=== PATIENT | female | born 1955 | race Caucasian/White ===

== ENCOUNTER 2020-05-21 18:57 | Observation (INO) | payer BC, OTHER ==
[~2020-05-21] VITALS: Ht 152.4 cm; Wt 85.0 kg
[2020-05-21] MEDS ORDERED: D31000TA2 PO ×2 (19:45→20:58)
[2020-05-21] MEDS ORDERED: FERR1TAB8 PO (19:45)
[2020-05-21] MEDS ORDERED: VITA100T86 PO (19:45)
[2020-05-21] MEDS ORDERED: ZETI10TA16 PO (19:45)
[2020-05-21] MEDS ORDERED: LEVO88TA3 PO (19:45)
[2020-05-21] MEDS ORDERED: ASPI-255 PO (19:45)
[2020-05-21 20:30] VITALS: BP 133/86
[2020-05-21] MEDS ORDERED: ROSU10TA6 PO (20:58)
[2020-05-21] MEDS ORDERED: FERR325T16 PO (20:58)
[2020-05-21] MEDS ORDERED: METO1TAB7 PO (20:58)
[2020-05-21] MEDS ORDERED: OMEP-221 PO (20:58)
[2020-05-21] MEDS ORDERED: DULO1CAP6 PO (20:58)
[2020-05-21] MEDS ORDERED: MYRB25TA PO (20:58)
[2020-05-21] MEDS ORDERED: FERROUS GLUCONATE 324 MG TAB PO SCH (21:00)
[2020-05-21] MEDS ORDERED: DULoxetine 30 MG CAP (CYMBALTA) PO SCH (21:00)
--- NOTE | 2020-05-21 22:08 | HPEPDOC ---
[facility] Medical History & Physical Date of Admission May 21, 2020 Date of Service: May 21, 2020 History and Physical CHIEF COMPLAINT: Confused at 1:30 PM HISTORY OF PRESENT ILLNESS: 64-year-old nonsmoker with hypertension, hyperlipidemia, presents from [facility] emergency room as a transfer with complaints of acute onset altered mental status at 1:30 PM while in her camp with her and 2 children Celso and Bryanna. . Her children had left earlier in the morning at 1:30 PM she kept saying "there is something wrong or something wrong. Wears Silvio and Bryanna." . She could not remember where she was and could not remember that her children had left earlier in the morning. denied any facial asymmetry, drooping, slurred speech, bilateral upper or lower lower extremity weakness, or gait abnormalities. Patient was disoriented and did not know where she was with time it was. She walked around the camp without difficulty and unassisted. She was able to understand questions and speech was fluent and not dysarthric. By the time EMS arrived 30 minutes later at 2:00 PM, she was back to baseline mentation. She's had no prior episodes of disorientation and confusion in the past. , Her blood pressure at [facility] emergency room was 160/101. Neurologic exam was normal without focal deficits. Bilateral upper and lower extremity weakness or paresthesias. She was able to count backwards from 100 awake, alert, oriented 3. On arrival, patient was given a 325 mg of aspirin by mouth and intravenous hydralazine 10 mg with blood pressure decreasing to 142/89. EKG showed sinus rhythm Covid was negative. Glucose was 123. Urinalysis was normal. PAST MEDICAL HISTORY: Hypertension, dyslipidemia, history of secondhand cigarette exposure as a child. , Depression, gastroesophageal reflux, iron deficiency, urinary incontinence PAST SURGICAL HISTORY: Tubal ligation, dilation and curettage EGD, colonoscoscopy HOME MEDICATIONS see below ALLERGIES: See below SOCIAL HISTORY: Retired school nurse. Denies alcohol, tobacco, recreational drug use. Secondhand cigarette smoke when she was a child FAMILY HISTORY: Father alive with dementia, age 94. History CAD, CABG 3 vessels, bladder cancer and CVA Mother in her 70s with CVA, CABG 4 vessels ALLERGIES: Please see below. REVIEW OF SYSTEMS: Positive findings per HPI. 10 point review of system otherwise negative PHYSICAL EXAMINATION: VITAL SIGNS: See below GENERAL APPEARANCE: Awake, alert, oriented times ransom questions appropriately. No conversational dyspnea No pallor, no icterus HEENT: NCAT. Pupils are equally round ,reactive to light and accommodation. Extra muscles are intact. Tongue is midline. No facial asymmetry CARDIOVASCULAR: Regular rate, rhythm, S1, S2, no murmurs, rubs or gallops LUNGS: Air entry is equal bilaterally. Clear to auscultation bilaterally. No kyphoscoliosis No adventitious breath sounds. No wheezing, rales or rhonchi. Normal inspiratory expiratory ratio ABDOMEN: Positive bowel sounds, soft, nontender, nondistended. No rebound, guarding No hepatosplenomegaly. No abdominal bruit EXTREMITIES: No cyanosis, clubbing or pitting edema NEUROLOGICAL: Speech is fluent Awake, alert, oriented 3. Face is symmetric. To ngue is midline. No pronator drift. Negative Babinski bilaterally. Motor function 5 out of 54 extremities. Negative Babinski No sensory disturbance. DTRs 2+ bilateral elbow, knees, ankle LABORATORY DATA: See below. IMAGING: Pending MRI/MRA of the brain. Pending. MRA of the carotids MICROBIOLOGY: Please see below. ASSESSMENT/PLAN: 64-year-old nonsmoker with hypertension, hyperlipidemia, presents from [facility] emergency room as a transfer with complaints of acute onset altered mental status at 1:30 PM while in her camp with her and 2 children Celso and Bryanna. . Her children had left earlier in the morning at 1:30 PM she kept saying "there is something wrong or something wrong. Wears Silvio and Bryanna." . She could not remember where she was and could not remember that her children had left earlier in the morning. denied any facial asymmetry, drooping, slurred speech, bilateral upper or lower lower extremity weakness, or gait abnormalities. Patient was disoriented and did not know where she was with time it was. She walked around the camp without difficulty and unassisted. She was able to understand questions and speech was fluent and not dysarthric. By the time EMS arrived 30 minutes later at 2:00 PM, she was back to baseline mentation. She's had no prior episodes of disorientation and confusion in the past. , Her blood pressure at [facility] emergency room was 160/101. Neurologic exam was normal without focal deficits. Bilateral upper and lower extremity weakness or paresthesias. She was able to count backwards from 100 awake, alert, oriented 3. On arrival, patient was given intravenous hydr alazine 10 mg with blood pressure decreasing to 142/89. EKG showed sinus rhythm Covid was negative. Glucose was 123. Urinalysis was normal. TIA, resolved -Admit to telemetry, patient was ready given aspirin. Continue on statins. Check lipid profile in the morning. MRI of the brain, MRA of the brain, MRA of the carotids, echocardiogram. EKG shows sinus rhythm. Neuro checks every 4 hourly. VT prophylaxis Hypertension, uncontrolled -Was given IV hydralazine at [facility] with improvement to 1:30 s ystolic. If the cárdenas has acute CVA on MRI. We'll need to increase blood pressure to 160-180 for the next 24 hours, which may require normal saline IV boluses Dyslipidemia -Continue on rosuvastatin. Check lipid profile in the morning, Gastroesophageal reflux disease -Continue on omeprazole Depression - continuing Cymbalta Iron deficiency -Chronic, continue on ferrous gluconate Vitamin D deficiency -Chronic, continue vitamin D supplements Diet 2 g sodium CODE STATUS full code DVT prophylaxis. Lovenox Home Medications Scheduled Cholecalciferol (Vitamin D3) (Vitamin D3) 1,000 Unit Tablet, 1,000 UNITS PO DAILY Duloxetine Hcl (Duloxetine HCl) 60 Mg Capsule.dr, 60 MG PO QHS Ferrous Gluconate (Ferrous Gluconate) 324 Mg Tablet, 324 MG PO QHS Metoprolol Succinate (Metoprolol Succinate) 50 Mg Tab.er.24h, 50 MG PO BID Mirabegron (Myrbetriq) 25 Mg Tab.er.24h, 25 MG PO DAILY Omeprazole (Omeprazole) 40 Mg Capsule.dr, 40 MG PO BID Rosuvastatin Calcium (Rosuvastatin Calcium) 10 Mg Tablet, 10 MG PO QHS Allergies Coded Allergies: No Known Allergies (Verified Allergy, Unknown, 05/21/20) A-FIB/CHADSVASC A-FIB History Current/History of A-Fib/PAF?: No Current PO Anticoag Therapy: No Age/Risk Factor Scoring CHADSVASC: CHADSVASC Response (Comments) Value Age Risk Factor Age < 65 years old 0 Gender Risk Factor Female 1 Hx of CHF No 0 Hx of HTN Yes 1 Hx of Stroke/TIA/or VTE No 0 Hx of Diabetes No 0 Hx of Vascular Disease No 0 Total 2 Treatment Treatment ordered: NONE ERAN ENGLE MD May 21, 2020 21:27
[2020-05-21] MEDS ORDERED: ROSUVASTATIN 10 MG TAB (CRESTOR) PO SCH (22:30)
--- NOTE | 2020-05-21 22:58 | REPVR ---
PROCEDURE INFORMATION: Exam: MR Angiogram Head Without Contrast, Arteries Exam date and time: 05/21/2020 10:36 PM Age: 64 years old Clinical indication: Dizziness and giddiness; Patient HX: PT states single episode of confusion, dizziness, and aphasia, that has since subsided. ; Additional info: TIA TECHNIQUE: Imaging protocol: MR angiogram head without contrast. Exam focused on the arteries. 3D rendering (Not supervised by radiologist): MIP and/or 3D reconstructed images were created by the technologist. COMPARISON: MRA CAROTID WITHOUT CONTRAST 05/21/2020 10:13 PM FINDINGS: ANTERIOR CIRCULATION: Right internal carotid artery: Intracranial segment is patent with no significant stenosis. No aneurysm. Right middle cerebral artery: No occlusion or significant stenosis. No aneurysm. Right anterior cerebral artery: No occlusion or significant stenosis. No aneurysm. Left internal carotid artery: Intracranial segment is patent with no significant stenosis. No aneurysm. Left middle cerebral artery: No occlusion or significant stenosis. No aneurysm. Left anterior cerebral artery: No occlusion or significant stenosis. No aneurysm. POSTERIOR CIRCULATION: Right vertebral artery: No occlusion or significant stenosis. No aneurysm. Left vertebral artery: No occlusion or significant stenosis. No aneurysm. Basilar artery: No occlusion or significant stenosis. No aneurysm. Right posterior cerebral artery: No occlusion or significant stenosis. No aneurysm. Left posterior cerebral artery: No occlusion or significant stenosis. No aneurysm. IMPRESSION: No stenosis or occlusion. Electronically signed by: Dequan Robbins On 05/21/2020 22:58:38 PM
--- NOTE | 2020-05-21 22:59 | REPVR ---
PROCEDURE INFORMATION: Exam: MR Angiography Neck Without Contrast Exam date and time: 05/21/2020 10:36 PM Age: 64 years old Clinical indication: Dizziness and giddiness; Patient HX: PT states single episode of confusion, dizziness, and aphasia, that has since subsided. ; Additional info: TIA TECHNIQUE: Imaging protocol: Magnetic resonance angiography of the neck without contrast. 3D rendering (Not supervised by radiologist): MIP and/or 3D reconstructed images were created by the technologist. COMPARISON: No relevant prior studies available. FINDINGS: Right common carotid artery: No stenosis. No dissection or occlusion. Right internal carotid artery: No stenosis of the extracranial segment. No dissection or occlusion. Right external carotid artery: No stenosis. No dissection or occlusion of the origin. Right vertebral artery: No stenosis. No dissection or occlusion. Left common carotid artery: No stenosis. No dissection or occlusion. Left internal carotid artery: No stenosis of the extracranial segment. No dissection or occlusion. Left external carotid artery: No stenosis. No dissection or occlusion of the origin. Left vertebral artery: No stenosis. No dissection or occlusion. IMPRESSION: No stenosis or occlusion. REFERENCES: NASCET CRITERIA. The degree of internal carotid artery stenosis is based on NASCET criteria. Normal is no stenosis. Mild is less than 50% stenosis. Moderate is 50-69% stenosis. Severe is 70% to 99% stenosis. Total occlusion is no detectable patent lumen. Electronically signed by: Dequan Robbins On 05/21/2020 22:59:50 PM
--- NOTE | 2020-05-21 23:01 | REPVR ---
PROCEDURE INFORMATION: Exam: MR Head Without Contrast Exam date and time: 05/21/2020 10:36 PM Age: 64 years old Clinical indication: Patient HX: PT states single episode of confusion, dizziness, and aphasia, that has since subsided. ; Additional info: TIA TECHNIQUE: Imaging protocol: MR of the head without contrast. COMPARISON: No relevant prior studies available. FINDINGS: Brain: Normal. No acute infarct. No hemorrhage. No significant white matter disease. No edema. Cerebral ventricles: Normal. No ventriculomegaly. Bones/joints: Unremarkable. Paranasal sinuses: Normal as visualized. No acute sinusitis. Mastoid air cells: Normal as visualized. No mastoid effusion. Orbits: Unremarkable. Soft tissues: Unremarkable. IMPRESSION: No acute findings. Electronically signed by: Dequan Robbins On 05/21/2020 23:00:53 PM
[2020-05-21] MEDS: METOPROLOL SUCC (TopROL XL) 50MG **XL** TAB PO SCH (23:31)
[2020-05-21 23:33] LABS: BASO # 0.1 10^3/uL (0.0-0.2); BASO % 0.6 % (0.0-1.0); EOS # 0.2 10^3/uL (0.0-0.5); EOS % 2.1 % (0.0-3.0); HEMATOCRIT 40.6 % (36.0-47.0); HEMOGLOBIN 12.2 g/dl (12.0-15.5); LYMPH % 25.3 % (24.0-44.0); MEAN CORPUSCULAR HEMOGLOBIN 23.9 pg (27.0-33.0); MEAN CORPUSCULAR VOLUME 79.6 fl (80.0-96.0); MONO # 0.7 10^3/uL (0.0-0.8); MONO % 8.5 % (0.0-5.0); NEUTROPHILS # 5.1 10^3/uL (1.5-8.5); NEUTROPHILS % 63.4 % (36.0-66.0); PLATELET COUNT, AUTOMATED 234 10^3/uL (150-450)
[2020-05-21 23:52] LABS: HEMOGLOBIN A1c 5.8 %
[2020-05-22 00:08] LABS: ALBUMIN 3.4 GM/DL (3.2-5.2); ALT/SGPT 44 U/L (12-78); BILIRUBIN,TOTAL 0.5 MG/DL (0.2-1.0); BLOOD UREA NITROGEN 17 MG/DL (7-18); CALCIUM LEVEL 8.3 MG/DL (8.8-10.2); CARBON DIOXIDE LEVEL 28 MEQ/L (21-32); CHLORIDE LEVEL 107 MEQ/L (98-107); CK-MB VALUE MASS 1.5 NG/ML (<3.6); CPK CREATINE PHOSPHOKINASE 97 U/L (26-192); CREATININE FOR GFR 0.61 MG/DL (0.55-1.30); FREE THYROXINE INDEX 2.7 % (1.3-4.8); GLOMERULAR FILTRATION RATE > 60.0 (>45); GLUCOSE, FASTING 88 MG/DL (70-100); MB/CK RELATIVE INDEX 1.55 (< OR =4); POTASSIUM SERUM 3.9 MEQ/L (3.5-5.1); SODIUM LEVEL 141 MEQ/L (136-145); T UPTAKE 37 % (30-39); THYROXINE (T4) 7.4 UG/DL (4.5-12.0); TOTAL PROTEIN 6.4 GM/DL (6.4-8.2); TROPONIN I < 0.02 NG/ML (< 0.10)
[2020-05-22 06:00] VITALS: BP 117/79
[2020-05-22 07:10] LABS: CHOLESTEROL RISK RATIO 3.105 (<5)
[2020-05-22 09:00] VITALS: BP 123/78
[2020-05-22] MEDS: METOPROLOL SUCC (TopROL XL) 50MG **XL** TAB PO SCH (09:00)
[2020-05-22] MEDS ORDERED: VITAMIN D 1,000 INTERNATIONAL UNITS TABLET PO SCH (09:00)
[2020-05-22 11:42] LABS: APPEARANCE, URINE CLEAR (CLEAR); BACTERIA, URINE AUTO NEGATIVE (NEGATIVE); BILIRUBIN, URINE AUTO NEGATIVE (NEGATIVE); BLOOD, URINE BLOOD 2+ (NEGATIVE); COLOR, URINE YELLOW (YELLOW); GLUCOSE, URINE (UA) AUTO NEGATIVE (NEGATIVE); KETONE, URINE AUTO NEGATIVE (NEGATIVE); LEUKOCYTE ESTERASE, URINE AUTO NEGATIVE (NEGATIVE); NITRITE, URINE AUTO NEGATIVE (NEGATIVE); PROTEIN, URINE AUTO NEGATIVE (NEGATIVE); RBC, URINE AUTO 3 /HPF (0-3); SPECIFIC GRAVITY URINE AUTO 1.008 (1.002-1.035); SQUAMOUS EPITHELIAL CELL UR AU 0 /HPF (0-6); UROBILINOGEN, URINE AUTO 0.2 mg/dL (0.0-2.0); WBC, URINE AUTO 0 /HPF (0-3)
[2020-05-22] MEDS ORDERED: ASPI81CH33 PO (13:08)
--- NOTE | 2020-05-22 13:13 | DS.PDOC ---
Discharge Summary General Date of Admission May 21, 2020 at 19:44 Date of Discharge 05/22/20 Discharge Summary CHIEF COMPLAINT: Confusion Final diagnosis Alteration in mental status Rule out CVA HISTORY OF PRESENT ILLNESS: 64-year-old nonsmoker with hypertension, hyperlipidemia, presents from [facility] emergency room as a transfer with complaints of acute onset altered mental status at 1:30 PM while in her camp with her and 2 children Celso and Bryanna. . Her children had left earlier in the morning at 1:30 PM she kept saying "there is something wrong or something wrong. Wears Silvio and Bryanna." . She could not remember where she was and could not remember that her children had left earlier in the morning. denied any facial asymmetry, drooping, slurred speech, bilateral upper or lower lower extremity weakness, or gait abnormalities. Patient was disoriented and did not know where she was with time it was. She walked around the camp without difficulty and unassisted. She was able to understand questions and speech was fluent and not dysarthric. By the time EMS arrived 30 minutes later at 2:00 PM, she was back to baseline mentation. She's had no prior episodes of disorientation and confusion in the past. , Her blood pressure at [facility] emergency room was 160/101. Neurologic exam was normal without focal deficits. . She was given a 325 mg of aspirin by mouth and intravenous hydralazine 10 mg with blood pressure decreasing to 142/89. EKG showed sinus rhythm, Covid was negative. Glucose was 123. Urinalysis was normal. The patient had an extensive workup with MRI of the brain as well as MRA along with carotid Dopplers, which all came out to be negative. The patient also got vitamin B12 levels which was normal, UA, which was negative, and UDS. EKG and telemetry were also monitored which also showed sinus rhythm. The patient has been on Cymbalta as well as another medication for her overactive bladder. Note, those are not a common side effects, but I have advised the patient to go to the PCP to get evaluation with regards to any change of those medications. The patient also will benefit from a sleep study as this could be related to sleep apnea as well. She did state that she snores while sleeping. At this time. There is no other concern or any further testing required and the maximal benefit from this hospital stay has been opting and the patient will be discharged home. Aspirin 81. Has been added to her regime for primary prevention. She already is on a statin. She'll be continued on her metoprolol and will be advised to see the PCP in the next 1 week. PHYSICAL EXAMINATION: GENERAL APPEARANCE: Awake, alert, oriented times ransom questions appropriately. No conversational dyspnea No pallor, no icterus HEENT: NCAT. Pupils are equally round ,reactive to light and accommodation. Extra muscles are intact. Tongue is midline. No facial asymmetry CARDIOVASCULAR: Regular rate, rhythm, S1, S2, no murmurs, rubs or gallops LUNGS: Air entry is equal bilaterally. Clear to auscultation bilaterally. No kyphoscoliosis No adventitious breath sounds. No wheezing, rales or rhonchi. Normal inspiratory expiratory ratio ABDOMEN: Positive bowel sounds, soft, nontender, nondistended. No rebound, guarding No hepatosplenomegaly. No abdominal bruit EXTREMITIES: No cyanosis, clubbing or pitting edema NEUROLOGICAL: Speech is fluent Awake, alert, oriented 3. Face is symmetric. Tongue is midline. No pronator drift. Negative Babinski bilaterally. Motor function 5 out of 54 extremities. Negative Babinski No sensory disturbance. DTRs 2+ bilateral elbow, knees, ankle Medications. As per discharge reconciliation medication list. Aspirin 81 mg has been admitted. All other home medications have been continued Activity as tolerated Diet. 2 g sodium diet Follow-up appointments. PCP in 1 week. Condition on discharge. Patient is medically optimized for discharge Discharge disposition: Home The patient will probably benefit from a sleep study and has been advised to follow-up with the PCP so that a sleep study can be set up with a sleep specialist. Total time spent on this discharge including coordination of care, review of chart documentation and actual patient contact is around 35 minutes Vital Signs/I&Os Vital Signs Date Time Temp Pulse Resp B/P (MAP) Pulse Ox O2 Delivery O2 Flow Rate FiO2 05/22/20 09:00 88 123/78 05/22/20 06:00 96.8 20 98 I&O- Last 24 Hours up to 6 AM 05/22/20 06:00 Intake Total 300 ml Output Total 0 ml Balance 300 ml Laboratory Data Labs 24H Laboratory Tests 2 05/21/20 23:20: Immature Granulocyte % (Auto) 0.1, Neutrophils (%) (Auto) 63.4, Lymphocytes (%) (Auto) 25.3, Monocytes (%) (Auto) 8.5H, Eosinophils (%) (Auto) 2.1, Basophils (%) (Auto) 0.6, Neutrophils # (Auto) 5.1, Lymphocytes # (Auto) 2.0, Monocytes # (Auto) 0.7, Eosinophils # (Auto) 0.2, Basophils # (Auto) 0.1, Nucleated Red Blood Cells % (auto) 0.0, Anion Gap 6L, Glomerular Filtration Rate > 60.0, Estimated Mean Plasma Glucose 120H, Hemoglobin A1c 5.8, Calcium Level 8.3L, Total Bilirubin 0.5, Aspartate Amino Transf (AST/SGOT) 20, Alanine Aminotransferase (ALT/SGPT) 44, Alkaline Phosphatase 91, Total Creatine Kinase 97, Creatine Kinase MB 1.5, Creatine Kinase MB Relative Index 1.55, Troponin I < 0.02, Total Protein 6.4, Albumin 3.4, Albumin/Globulin Ratio 1.1L, Thyroid Stimulating Hormone (TSH) 2.730, Free Thyroxine Index 2.7, Thyroxine (T4) 7.4, Triiodothyronine (T3) Uptake 37 05/22/20 06:07: Triglycerides Level 138, Total Cholesterol 177, LDL Cholesterol 92, Non-HDL Cholesterol (LDL + VLDL) 120, Total HDL Cholesterol 57, Cholesterol/HDL Ratio 3.105 05/22/20 09:51: Ammonia 21, Vitamin B12 Level 427 05/22/20 11:25: Urine Color YELLOW, Urine Appearance CLEAR, Urine pH 6.0, Urine Specific [place] 1.008, Urine Protein NEGATIVE, Urine Glucose (Auto)(UA) NEGATIVE, Urine Ketones (Auto) NEGATIVE, Urine Blood 2+H, Urine Nitrite NEGATIVE, Urine Bilirubin NEGATIVE, Urine Urobilinogen 0.2, Urine Leukocyte Esterase (Auto) NEGATIVE, Urine WBC (Auto) 0, Urine RBC (Auto) 3, Urine Hyaline Casts (Auto) 0, Urine Bacteria (Auto) NEGATIVE, Urine Squamous Epithelial Cells 0, Urine Sperm (Auto) CBC/BMP Laboratory Tests 05/21/20 23:20 Discharge Medications Scheduled Aspirin (Aspirin) 81 Mg Tab.chew, 1 TAB PO DAILY for pain Cholecalciferol (Vitamin D3) (Vitamin D3) 1,000 Unit Tablet, 1,000 UNITS PO DAILY, (Reported) Duloxetine Hcl (Duloxetine HCl) 60 Mg Capsule.dr, 60 MG PO QHS, (Reported) Ferrous Gluconate (Ferrous Gluconate) 324 Mg Tablet, 324 MG PO QHS, (Reported) Metoprolol Succinate (Metoprolol Succinate) 50 Mg Tab.er.24h, 50 MG PO BID, (Reported) Mirabegron (Myrbetriq) 25 Mg Tab.er.24h, 25 MG PO DAILY, (Reported) Omeprazole (Omeprazole) 40 Mg Capsule.dr, 40 MG PO BID, (Reported) Rosuvastatin Calcium (Rosuvastatin Calcium) 10 Mg Tablet, 10 MG PO QHS, (Reported) Allergies Coded Allergies: No Known Allergies (Verified Allergy, Unknown, 05/21/20) ДМИТРИЙ VELÁSQUEZ MD May 22, 2020 13:12
--- NOTE | 2020-05-22 23:27 | ECGEPIP ---
[facility] Test Date: 2020-05-21 Pat Name: ILIANA WARD Department: Room: [place] [address] Gender: Female Visual Artist: [place] : 1955 Requested By: ERAN Saha Order Number: [id number] Reading MD: Edil Hidalgo Measurements Intervals [place] Rate: 70 P: -26 IN: 123 QRS: 14 QRSD: 87 T: 2 QT: 387 QTc: 419 Interpretive Statements SINUS RHYTHM POSSIBLE LEFT ATRIAL ENLARGEMENT POSSIBLE PRIOR INFERIOR WALL INFARCT NO PREVIOUS IN THE SYSTEM Electronically Signed on 05-22-2020 23:27:08 EST by Edil Hidalgo
--- NOTE | 2020-05-23 13:38 | ECHO ---
DATE OF PROCEDURE: 05/22/2020 Age: 64 Gender: Female Height: 60 inches Weight: 187 pounds. Body surface area: 1.81 m2 PATIENT LOCATION: Inpatient [address] [place] [address], Room 4227 REFERRING PHYSICIAN: Dian Prieto MD. INDICATION: Transient ischemic attack (TIA). MEASUREMENTS: 2D Measurements: RV 2.9 cm LV 4.1 cm Septum 1.1 cm Posterior wall 1.0 cm Aortic Root 3.2 cm LA 3.6 cm LVEF 75% Doppler Measurements: AV 1.35 m/s LVOT 1.21 m/s LVOT diameter 2.0 cm MV-E 76, A 60, E/A ratio 1.3 Early mitral deceleration time 219 m/s E prime medial 8.2, A prime medial 11, E prime lateral 9.7 Average E/E prime ratio 8.5/PCWP 12.4 mmHg PV 0.9 m/s Pulmonary artery acceleration time 95 msec RVSP 30-35 mmHg IVC 1.2 cm COMMENTS: Normal sinus rhythm with intraventricular conduction disturbance. M-mode and two-dimensional echocardiography was performed with pulse, continuous wave, color flow, and tissue Doppler studies. Normal left ventricular size, wall thickness, and hyperkinetic wall motion. Normal left atrial size and left ventricular (LV) diastolic function and estimated mean left atrial pressure. Normal right heart chamber sizes and wall motion with Doppler evidence of borderline pulmonary hypertension. Normal inferior vena cava (IVC) size and collapse against an elevated central venous pressure. Normal aortic dimensions. Normal appearing and functioning valvular structures. No apparent intracardiac mass or pericardial effusion. MTDD
== END 2020-05-22 16:21 | disposition home or self-care (01) ==
LOC: M ED INP 19:44 → M MSPAV 20:30
PROVIDERS: ADMIT Internal Medicine; ATTEND Internal Medicine
DX: R41.82 Altered mental status, unspecified (principal); I10 Essential (primary) hypertension; E78.49 Other hyperlipidemia; K21.9 Gastro-esophageal reflux disease without esophagitis; E55.9 Vitamin D deficiency, unspecified; D50.9 Iron deficiency anemia, unspecified; F32.9 Major depressive disorder, single episode, unspecified; Z79.82 Long term (current) use of aspirin; Z79.899 Other long term (current) drug therapy